=== PATIENT | male | born 1975 | race Two or more races ===

== ENCOUNTER 2024-05-23 12:35 | Emergency (ER) | payer OTHER ==
[2024-05-23 12:43] VITALS: BP 156/82; PULSE 83; RESP 17; TEMP 98.7; BMI 36.2
[2024-05-23] MEDS ORDERED: FLUORESCEIN NA 1 EA STRIP ONE (12:58)
[2024-05-23] MEDS ORDERED: TETRACAINE 0.5% OPHTH SOLN 2 ML BOTTLE ONE (12:58)
[2024-05-23] MEDS: FLUORESCEIN NA 1 EA STRIP OS ONE (13:01)
[2024-05-23] MEDS: TETRAHYDROZOLINE HCL EYE DROPS OS ONE (13:01)
[2024-05-23] MEDS ORDERED: ERYTHROMYCIN 0.5% OPHTHALMIC OINTMENT 3.5 GM TUBE ONE (13:15)
[2024-05-23] MEDS: ERYTHROMYCIN 0.5% OPHTHALMIC OINTMENT 3.5 GM TUBE OS ONE (13:17)
== END 2024-05-23 14:00 | disposition home or self-care (01) ==
LOC: JERFT 12:35
DX: S05.02XA Injury of conjunctiva and corneal abrasion without foreign body, left eye, initial encounter (principal); W22.8XXA Striking against or struck by other objects, initial encounter
CPT/HCPCS: 99283-25